=== PATIENT | male | born 1995 | race Two or more races ===

== ENCOUNTER 2017-06-22 01:10 | Emergency (ER) | payer SELFPAY ==
[2017-06-22 01:45] VITALS: BP 116/37; PULSE 78; TEMP 98.7; BMI 19.2
[2017-06-22] MEDS ORDERED: IBUPROFEN 400 MG TABLET (FP) PO ONE ×2 (04:04→04:34)
--- NOTE | 2017-06-22 05:51 | PDOC ---
History of Present Illness - General Chief Complaint: Injury Stated Complaint: INJURY TO ANKLE Time Seen by Provider: 06/22/17 02:20 - History of Present Illness Initial Comments: 06/22/17 05:48 CHIEF COMPLAINT: ankle injury HISTORY OF PRESENT ILLNESS: 21-year-old male with no past medical history presents to ED with right ankle pain status post soccer injury. Patient states that he fell straight onto his right ankle. Patient states he was unable to bear weight after the accident. No recent travel or sick contacts. PAST MEDICAL HISTORY: Denies past medical history FAMILY HISTORY: Denies SOCIAL HISTORY:Denies tobacco, alcohol, illicit drug use. SURGICAL HISTORY: Denies ALLERGIES: No known drug allergies REVIEW OF SYSTEMS General/Constitutional: Denies fever or chills. Denies weakness, weight change. HEENT: Denies change in vision. Denies ear pain or discharge. Denies sore throat. Cardiovascular: Denies chest pain or shortness of breath. Respiratory: Denies cough, wheezing, or hemoptysis. Gastrointestinal: Denies nausea, vomiting, diarrhea or constipation. Denies rectal bleeding. Genitourinary: Denies dysuria, frequency, or change in urination. Musculoskeletal: Pain to R ankle. Denies joint or muscle swelling or pain. Denies neck or back pain. Skin and breasts: Denies rash or easy bruising. PHYSICAL EXAM General Appearance: Well-appearing, appropriately dressed. No apparent distress. HEENT: EOMI, PERRLA, normal ENT inspection, normal voice, TMs normal, pharynx normal. No conjunctival pallor. No photophobia, scleral icterus. Respiratory/Chest: Lungs CTAB. Cardiovascular: RRR. S1, S2. Musculoskeletal/Extremities: Swelling and TTP to R lateral malleolus, no tenderness at base of 5th metatarsal. Normal inspection. FROM of all extremities , normal capillary refill. Pelvis Stable. No CVA tenderness. No tenderness to extremities, pedal edema, swelling, erythema or deformity. Integumentary: Appropriate color, dry, warm. No cyanosis, erythema, jaundice or rash Neurologic: wood heel flap inserter II-XII intact. Fully oriented, alert. Appropriate mood/affect. Motor strength 5/5. No appreciable EOM palsy, facial droop or sensory deficit. Past History - Past Medical History Allergies/Adverse Reactions: Allergies Allergy/AdvReac Type Severity Reaction Status Date / Time No Known Allergies Allergy Verified 06/22/17 01:42 Home Medications: Ambulatory Orders Naproxen [Naprosyn -] 250 mg PO BID #28 tablet 06/22/17 - Psycho/Social/Smoking Cessation Hx Suicidal Ideation: No Smoking History: Never smoked Have you smoked in the past 12 months: No Information on smoking cessation initiated: No Hx Alcohol Use: No Drug/Substance Use Hx: No *Physical Exam - Vital Signs Last Vital Signs Temp Pulse Resp BP Pulse Ox 98.7 F 78 18 116/37 98 06/22/17 01:43 06/22/17 01:43 06/22/17 01:43 06/22/17 01:43 06/22/17 01:43 ED Treatment Course - RADIOLOGY Radiology Studies Ordered: Category Date Time Status ANKLE & FOOT-RIGHT* [RAD] Stat Radiology 06/22/17 02:38 Ordered - Medications Given in the ED: ED Medications Discontinued Medications Generic Name Dose Route Start Last Admin Trade Name Freq PRN Reason Stop Dose Admin Ibuprofen 800 mg 06/22/17 04:04 06/22/17 04:54 Motrin - PO 06/22/17 04:05 800 mg ONCE ONE Administration Medical Decision Making - Medical Decision Making 06/22/17 05:49 21 yo M with no PMH presents to ED with pain to R ankle s/p soccer injury. -800 mg ibuprofen -R ankle/ft x-ray X-ray negative for fracture or dislocation. -Christiano bandage, crutches -Naproxen rx sent to pharm Advised patient to take medications as prescribed and to f/u with orthopedics if symptoms persists past one week. Advised patient of signs and symptoms for return to ER; patient verbalized understanding and agrees to plan. *DC/Admit/Observation/Transfer Diagnosis at time of Disposition: Ankle sprain Qualifiers: Encounter type: initial encounter Involved ligament of ankle: unspecified ligament Laterality: right Qualified Code(s): S93.401A - Sprain of unspecified ligament of right ankle, initial encounter - Discharge Dispostion Disposition: HOME Condition at time of disposition: Stable Admit: No - Prescriptions Prescriptions: Naproxen [Naprosyn -] 250 mg PO BID #28 tablet - Referrals Referrals: Norm Belle MD [Staff Physician] - - Patient Instructions Printed Discharge Instructions: DI for Ankle Sprain, How To Perform RICE (Rest , Ice, Compress, Elevate) Additional Instructions: Please take medication as prescribed; use RICE therapy as described in information packet. As discussed, if you continue having pain for more than 4- 5 days and are still unable to bear weight on your foot at all, please follow up with orthopedics (referral provided). If you experience any increased swelling, numbness, tingling, or loss of sensation to your foot, please return to the ER.
== END 2017-06-22 06:11 ==
LOC: JER 01:10 → JERFT 01:10 → JER 06:11
CPT/HCPCS: 73610-TC-RT; 73630-TC-RT; 99282-25

== ENCOUNTER 2019-03-31 22:55 | Emergency (ER) | payer OTHER | END 2019-04-01 00:59 | disposition home or self-care (01) | LOC: JER 04-01 00:59 ==

== ENCOUNTER 2019-10-24 16:12 | Emergency (ER) | payer OTHER ==
[2019-10-24 16:26] VITALS: BP 110/50; PULSE 85; TEMP 97.8; BMI 19.2
[2019-10-24] MEDS ORDERED: KETOROLAC TROMETHAMINE 30 MG/1 ML VIAL IM ONE (17:13)
[2019-10-24] MEDS ORDERED: KETOROLAC TROMETHAMINE 30 MG/1 ML VIAL ONE (17:19)
--- NOTE | 2019-10-24 17:23 | PDOC ---
History of Present Illness - General Chief Complaint: Toothache Stated Complaint: PAIN Time Seen by Provider: 10/24/19 16:29 History Source: Patient - History of Present Illness Timing/Duration: other Past History - Past Medical History Allergies/Adverse Reactions: Allergies Allergy/AdvReac Type Severity Reaction Status Date / Time No Known Allergies Allergy Verified 03/31/19 23:09 Home Medications: Ambulatory Orders Fluticasone Prop 0.05% Nasal [Flonase -] 1 - 2 spray NS BID #1 spray.pump Ibuprofen 400 mg PO QID PRN #20 tablet 04/01/19 Ibuprofen [Motrin -] 600 mg PO QID #28 tablet 10/24/19 COPD: No - Immunization History Immunization Up to Date: Yes - Psycho Social/Smoking Cessation Hx Smoking History: Never smoked Have you smoked in the past 12 months: No Hx Alcohol Use: No Drug/Substance Use Hx: No Substance Use Type: None Review of Systems - Review of Systems Constitutional: No: Chills, Fever *Physical Exam - Vital Signs Last Vital Signs Temp Pulse Resp BP Pulse Ox 97.8 F 85 16 110/50 L 100 10/24/19 16:24 10/24/19 16:24 10/24/19 16:24 10/24/19 16:24 10/24/19 16:24 - Physical Exam General Appearance: Yes: Appropriately Dressed. No: Apparent Distress HEENT: positive: Normal Voice, Other (minimal swelling/ttp to R lower retromolar pad, no facial swelling) Respiratory/Chest: negative: Respiratory Distress Integumentary: positive: Dry, Warm Neurologic: positive: Fully Oriented, Alert, Normal Mood/Affect Medical Decision Making - Medical Decision Making 10/24/19 17:47 24-year-old male no significant history here with dental pain since yesterday. No trauma. No facial pain swelling fever or chills. States he has not seen a dentist in many years see exam Dental pain Minimal swelling/ttp to R lower retro-molar pad Dc w/ pain control and f/u in urgent care dental clinic tomorrow 10/24/19 17:49 Patient walked out of ED without discharge papers Discharge - Discharge Information Problems reviewed: Yes Clinical Impression/Diagnosis: Pain, dental Condition: Good Disposition: HOME - Additional Discharge Information Prescriptions: Ibuprofen [Motrin -] 600 mg PO QID #28 tablet - Follow up/Referral - Patient Discharge Instructions Patient Printed Discharge Instructions: DI for Dental Pain Additional Instructions: [facility] [address] [place] [address] - Post Discharge Activity
== END 2019-10-24 17:31 | disposition home or self-care (01) ==
LOC: JERFT 16:12
PROC: 3E0233Z Introduction of Anti-inflammatory into Muscle, Percutaneous Approach (ICD-10-PCS; principal; 2019-10-24)
DX: K08.89 Other specified disorders of teeth and supporting structures (principal)
CPT/HCPCS: 99281-25